=== PATIENT | male | born 1940 | race Caucasian/White ===

== ENCOUNTER 2021-12-29 17:40 | Inpatient (IN) ==
[2021-12-29 19:45] LABS: Basophils % 0.3 % (0.0-0.8); Eosinophils # 0.1 10*3/uL (0.0-0.87); Eosinophils % 1.1 % (0.00-10.9); Hematocrit 35.1 VOL% (42.0-52.0); Hemoglobin 11.6 GM/DL (14.0-18.0); Immature Granulocytes % 0.5 %; Immature Granulocytes Absolute 0.03 #; Lymphocytes # 1.3 10*3/uL (1.4-4.0); Lymphocytes % 19.1 % (21.2-54.2); Monocytes # 0.8 10*3/uL (0.11-0.8); Monocytes % 12.4 % (1.7-12.7); Neutrophils % 66.6 % (38.7-73.9); Platelet Count 215 T/CUMM (130-400); Red Blood Count 3.58 MC/CUMM (3.8-5.5); Red Cell Distribution Width 12.7 % (9.3-17.3); White Blood Count 6.5 T/CUMM (4-12)
[2021-12-29 19:58] LABS: Albumin 3.3 G/DL (3.4-5.0); Bilirubin,Total 0.6 MG/DL (0.20-1.00); Calcium 8.8 MG/DL (8.5-10.1); Osmolality,Calculated 276.5 MOS/KG (273-304); Potassium 3.7 MMOL/L (3.5-5.1); Total Protein 6.5 G/DL (6.4-8.2)
[2021-12-29 20:24] LABS: Glucose,Urine (UA) Negative (Negative); Ketones,Urine Negative (Negative); Nitrite,Urine Negative (Negative); Protein,Urine Negative (Negative); Urine Appearance Clear (Clear); Urine Color Yellow (Yellow); Urine Specific Gravity 1.015 (1.001-1.035); Urine pH 8.5 (4.5-8.0)
[2021-12-29 20:25] LABS: Bilirubin,Urine Negative (Negative); Blood, Urine Trace mg/dL (Negative); Urine Urobilinogen 0.2 eU/dL (<2.0)
[2021-12-29 20:29] LABS: Mucus,Urine Occasional /LPF (Occasional)
[2021-12-29] MEDS ORDERED: MORPHINE 2 MG/1 ML SYRINGE IV STA (21:03)
[2021-12-29] MEDS ORDERED: ONDANSETRON 4 MG/2 ML VIAL IV STA (21:03)
[2021-12-29] MEDS ORDERED: DEXTROSE 50% 25 GM/50 ML VIAL IV PRN (21:40)
[2021-12-29] MEDS ORDERED: GLUCAGON 1 MG VIAL IM PRN (21:40)
[2021-12-29] MEDS ORDERED: DEXTROSE 10% 250 ML BAG IV PRN (22:00)
[2021-12-30] MEDS: MORPHINE 2 MG/1 ML SYRINGE IV PRN ×2 (06:22→21:30)
[2021-12-30 07:52] LABS: Basophils % 0.3 % (0.0-0.8); Eosinophils # 0.2 10*3/uL (0.0-0.87); Eosinophils % 3.3 % (0.00-10.9); Hematocrit 34.4 VOL% (42.0-52.0); Hemoglobin 11.4 GM/DL (14.0-18.0); Immature Granulocytes % 0.3 %; Immature Granulocytes Absolute 0.02 #; Lymphocytes # 1.7 10*3/uL (1.4-4.0); Lymphocytes % 29.6 % (21.2-54.2); Mean Corpuscular HGB Conc 33.1 GM/DL (32-36); Mean Corpuscular Volume 98.9 FL (87-102); Mean Platelet Volume 9.8 FL (9.6-12.0); Monocytes # 0.9 10*3/uL (0.11-0.8); Neutrophils % 51.5 % (38.7-73.9); Platelet Count 197 T/CUMM (130-400); Red Blood Count 3.48 MC/CUMM (3.8-5.5); Red Cell Distribution Width 12.9 % (9.3-17.3); White Blood Count 5.7 T/CUMM (4-12)
[2021-12-30] MEDS: INSULIN REGULAR 100 UNIT/ML SUBCUT SCH ×4 (08:08→20:42)
[2021-12-30 08:09] LABS: Albumin 3.1 G/DL (3.4-5.0); Bilirubin,Total 0.5 MG/DL (0.20-1.00); Calcium 8.6 MG/DL (8.5-10.1); Osmolality,Calculated 268.1 MOS/KG (273-304); Potassium 3.5 MMOL/L (3.5-5.1); Total Protein 6.3 G/DL (6.4-8.2)
[2021-12-30] MEDS: LOSARTAN 50 MG TABLET PO SCH (08:49)
[2021-12-30] MEDS: PANTOPRAZOLE 40 MG TABLET PO SCH (08:49)
[2021-12-30] MEDS: carvediloL 25 MG TABLET PO SCH ×2 (08:49→16:40)
[2021-12-31 05:01] LABS: Basophils % 0.5 % (0.0-0.8); Eosinophils # 0.3 10*3/uL (0.0-0.87); Hematocrit 32.7 VOL% (42.0-52.0); Hemoglobin 10.9 GM/DL (14.0-18.0); Immature Granulocytes % 0.5 %; Immature Granulocytes Absolute 0.03 #; Lymphocytes # 1.4 10*3/uL (1.4-4.0); Lymphocytes % 22.5 % (21.2-54.2); Mean Corpuscular HGB Conc 33.3 GM/DL (32-36); Mean Corpuscular Volume 98.5 FL (87-102); Mean Platelet Volume 9.5 FL (9.6-12.0); Monocytes # 0.8 10*3/uL (0.11-0.8); Monocytes % 12.2 % (1.7-12.7); Neutrophils % 59.3 % (38.7-73.9); Platelet Count 181 T/CUMM (130-400); Red Blood Count 3.32 MC/CUMM (3.8-5.5); Red Cell Distribution Width 12.8 % (9.3-17.3); White Blood Count 6.2 T/CUMM (4-12)
[2021-12-31 05:31] LABS: Risk Ratio 4.31; VLDL Cholesterol 38.2 MG/DL
[2021-12-31 07:07] LABS: Calcium 8.3 MG/DL (8.5-10.1); Osmolality,Calculated 275.7 MOS/KG (273-304); Potassium 3.5 MMOL/L (3.5-5.1)
[2021-12-31] MEDS: INSULIN REGULAR 100 UNIT/ML SUBCUT SCH ×4 (07:48→21:26)
[2021-12-31] MEDS: LOSARTAN 50 MG TABLET PO SCH (08:45)
[2021-12-31] MEDS: PANTOPRAZOLE 40 MG TABLET PO SCH (08:45)
[2021-12-31] MEDS: carvediloL 25 MG TABLET PO SCH ×2 (08:45→16:11)
[2021-12-31] MEDS: EZETIMIBE 10 MG TABLET PO SCH (08:45)
[2022-01-01 06:19] LABS: Basophils % 0.5 % (0.0-0.8); Eosinophils # 0.3 10*3/uL (0.0-0.87); Eosinophils % 5.3 % (0.00-10.9); Hematocrit 34.2 VOL% (42.0-52.0); Hemoglobin 11.3 GM/DL (14.0-18.0); Immature Granulocytes % 0.9 %; Immature Granulocytes Absolute 0.06 #; Lymphocytes # 1.4 10*3/uL (1.4-4.0); Lymphocytes % 22.3 % (21.2-54.2); Mean Platelet Volume 10.2 FL (9.6-12.0); Monocytes # 0.8 10*3/uL (0.11-0.8); Monocytes % 11.8 % (1.7-12.7); Neutrophils % 59.2 % (38.7-73.9); Platelet Count 218 T/CUMM (130-400); Red Blood Count 3.49 MC/CUMM (3.8-5.5); Red Cell Distribution Width 12.8 % (9.3-17.3); White Blood Count 6.5 T/CUMM (4-12)
[2022-01-01 06:37] LABS: Calcium 8.3 MG/DL (8.5-10.1); Osmolality,Calculated 275.7 MOS/KG (273-304); Potassium 3.8 MMOL/L (3.5-5.1)
[2022-01-01] MEDS: INSULIN REGULAR 100 UNIT/ML SUBCUT SCH ×4 (08:42→21:44)
[2022-01-01] MEDS: carvediloL 25 MG TABLET PO SCH ×2 (10:10→17:54)
[2022-01-01] MEDS: PANTOPRAZOLE 40 MG TABLET PO SCH (10:10)
[2022-01-01] MEDS: EZETIMIBE 10 MG TABLET PO SCH (10:10)
[2022-01-01] MEDS: LOSARTAN 50 MG TABLET PO SCH (10:10)
[2022-01-02 05:43] LABS: Basophils % 0.4 % (0.0-0.8); Eosinophils # 0.3 10*3/uL (0.0-0.87); Eosinophils % 3.6 % (0.00-10.9); Hematocrit 35.2 VOL% (42.0-52.0); Hemoglobin 11.7 GM/DL (14.0-18.0); Immature Granulocytes % 0.8 %; Immature Granulocytes Absolute 0.06 #; Lymphocytes # 1.3 10*3/uL (1.4-4.0); Lymphocytes % 16.6 % (21.2-54.2); Mean Corpuscular HGB Conc 33.2 GM/DL (32-36); Mean Corpuscular Volume 98.6 FL (87-102); Mean Platelet Volume 9.6 FL (9.6-12.0); Monocytes # 0.8 10*3/uL (0.11-0.8); Monocytes % 10.9 % (1.7-12.7); Neutrophils % 67.7 % (38.7-73.9); Platelet Count 232 T/CUMM (130-400); Red Blood Count 3.57 MC/CUMM (3.8-5.5); Red Cell Distribution Width 12.9 % (9.3-17.3); White Blood Count 7.5 T/CUMM (4-12)
[2022-01-02 05:59] LABS: Calcium 8.6 MG/DL (8.5-10.1)
[2022-01-02] MEDS ORDERED: MAGNESIUM HYDROXIDE SUSP 30 ML UDCUP PO ONE (07:50)
[2022-01-02] MEDS: MORPHINE 2 MG/1 ML SYRINGE IV PRN ×2 (10:43→21:50)
[2022-01-02] MEDS: LOSARTAN 50 MG TABLET PO SCH (10:43)
[2022-01-02] MEDS: carvediloL 25 MG TABLET PO SCH ×2 (10:43→17:38)
[2022-01-02] MEDS: PANTOPRAZOLE 40 MG TABLET PO SCH (10:43)
[2022-01-02] MEDS: EZETIMIBE 10 MG TABLET PO SCH (10:43)
[2022-01-02] MEDS: DOCUSATE SODIUM 100 MG CAPSULE PO SCH ×2 (10:43→21:47)
[2022-01-02] MEDS: INSULIN REGULAR 100 UNIT/ML SUBCUT SCH ×3 (15:23→20:44)
[2022-01-03] MEDS: MORPHINE 2 MG/1 ML SYRINGE IV PRN (02:02)
[2022-01-03] MEDS: ONDANSETRON 4 MG/2 ML VIAL IV PRN ×2 (05:45→15:31)
[2022-01-03 05:49] LABS: Basophils % 0.4 % (0.0-0.8); Eosinophils # 0.2 10*3/uL (0.0-0.87); Eosinophils % 4.4 % (0.00-10.9); Hematocrit 33.1 VOL% (42.0-52.0); Immature Granulocytes % 0.8 %; Immature Granulocytes Absolute 0.04 #; Lymphocytes % 19.9 % (21.2-54.2); Mean Corpuscular HGB Conc 33.2 GM/DL (32-36); Mean Corpuscular Volume 97.9 FL (87-102); Mean Platelet Volume 9.6 FL (9.6-12.0); Monocytes # 0.8 10*3/uL (0.11-0.8); Monocytes % 16.1 % (1.7-12.7); Neutrophils % 58.4 % (38.7-73.9); Platelet Count 213 T/CUMM (130-400); Red Blood Count 3.38 MC/CUMM (3.8-5.5); Red Cell Distribution Width 12.7 % (9.3-17.3)
[2022-01-03 06:06] LABS: Calcium 8.4 MG/DL (8.5-10.1); Osmolality,Calculated 279.4 MOS/KG (273-304)
[2022-01-03] MEDS ORDERED: BISACODYL 10 MG SUPP RECTAL ONE (07:55)
[2022-01-03 09:24] LABS: Lymphocytes 18 % (20-55); Stomatocytes Slight; Total Cells Counted 100
[2022-01-03 09:25] LABS: Anisocytosis 1+; Platelet Estimate Normal; Polychromasia Slight
[2022-01-03] MEDS: PANTOPRAZOLE 40 MG TABLET PO SCH (09:39)
[2022-01-03] MEDS: DOCUSATE SODIUM 100 MG CAPSULE PO SCH ×2 (09:39→20:06)
[2022-01-03] MEDS: LOSARTAN 50 MG TABLET PO SCH (09:40)
[2022-01-03] MEDS: carvediloL 25 MG TABLET PO SCH ×2 (09:40→17:28)
[2022-01-03] MEDS: EZETIMIBE 10 MG TABLET PO SCH (09:40)
[2022-01-03] MEDS: POLYETHYLENE GLYCOL POWDER 17 GM PACK PO SCH (09:40)
[2022-01-03] MEDS: INSULIN REGULAR 100 UNIT/ML SUBCUT SCH ×4 (10:06→20:09)
[2022-01-04] MEDS: ONDANSETRON 4 MG/2 ML VIAL IV PRN (01:39)
[2022-01-04 05:38] LABS: Basophils % 0.2 % (0.0-0.8); Eosinophils # 0.2 10*3/uL (0.0-0.87); Eosinophils % 3.3 % (0.00-10.9); Hemoglobin 10.8 GM/DL (14.0-18.0); Immature Granulocytes % 1.1 %; Immature Granulocytes Absolute 0.06 #; Lymphocytes # 1.1 10*3/uL (1.4-4.0); Lymphocytes % 19.8 % (21.2-54.2); Mean Corpuscular HGB Conc 32.7 GM/DL (32-36); Mean Corpuscular Volume 99.1 FL (87-102); Mean Platelet Volume 10.1 FL (9.6-12.0); Neutrophils % 58.6 % (38.7-73.9); Platelet Count 229 T/CUMM (130-400); Red Blood Count 3.33 MC/CUMM (3.8-5.5); Red Cell Distribution Width 12.7 % (9.3-17.3); White Blood Count 5.7 T/CUMM (4-12)
[2022-01-04 05:55] LABS: Calcium 8.7 MG/DL (8.5-10.1); Osmolality,Calculated 276.5 MOS/KG (273-304); Potassium 4.8 MMOL/L (3.5-5.1)
[2022-01-04 06:09] LABS: Eosinophils 1 % (0-10); Lymphocytes 24 % (20-55); Nucleated Red Blood Cells 1 (0-5); Total Cells Counted 100
[2022-01-04 06:10] LABS: Platelet Estimate Adequate
[2022-01-04] MEDS: carvediloL 25 MG TABLET PO SCH ×2 (09:17→17:37)
[2022-01-04] MEDS: EZETIMIBE 10 MG TABLET PO SCH (09:17)
[2022-01-04] MEDS: LOSARTAN 50 MG TABLET PO SCH (09:17)
[2022-01-04] MEDS: DOCUSATE SODIUM 100 MG CAPSULE PO SCH ×2 (09:17→20:00)
[2022-01-04] MEDS: PANTOPRAZOLE 40 MG TABLET PO SCH (09:17)
[2022-01-04] MEDS: POLYETHYLENE GLYCOL POWDER 17 GM PACK PO SCH (09:18)
[2022-01-04] MEDS: INSULIN REGULAR 100 UNIT/ML SUBCUT SCH ×4 (10:16→22:11)
[2022-01-04] MEDS ORDERED: TUBERCULIN SKIN TEST 0.1 ML SYRINGE INTRADERM ONE (13:00)
[2022-01-05] MEDS: ONDANSETRON 4 MG/2 ML VIAL IV PRN ×2 (00:16→04:32)
[2022-01-05 06:32] LABS: Basophils % 0.5 % (0.0-0.8); Eosinophils # 0.2 10*3/uL (0.0-0.87); Eosinophils % 3.4 % (0.00-10.9); Hemoglobin 11.4 GM/DL (14.0-18.0); Immature Granulocytes % 0.5 %; Immature Granulocytes Absolute 0.03 #; Lymphocytes # 1.5 10*3/uL (1.4-4.0); Lymphocytes % 23.9 % (21.2-54.2); Mean Corpuscular HGB Conc 33.5 GM/DL (32-36); Mean Corpuscular Volume 98.3 FL (87-102); Mean Platelet Volume 9.7 FL (9.6-12.0); Monocytes % 16.6 % (1.7-12.7); Neutrophils % 55.1 % (38.7-73.9); Platelet Count 277 T/CUMM (130-400); Red Blood Count 3.46 MC/CUMM (3.8-5.5); Red Cell Distribution Width 12.7 % (9.3-17.3); White Blood Count 6.1 T/CUMM (4-12)
[2022-01-05 06:53] LABS: Band Neutrophils 1 % (0-10); Eosinophils 4 % (0-10); Lymphocytes 26 % (20-55); Platelet Estimate Adequate; Total Cells Counted 100
[2022-01-05 06:55] LABS: Calcium 8.5 MG/DL (8.5-10.1); Osmolality,Calculated 274.7 MOS/KG (273-304); Potassium 4.3 MMOL/L (3.5-5.1)
[2022-01-05 08:22] VITALS: BP 122/52
[2022-01-05] MEDS: POLYETHYLENE GLYCOL POWDER 17 GM PACK PO SCH (08:41)
[2022-01-05] MEDS: EZETIMIBE 10 MG TABLET PO SCH (08:42)
[2022-01-05] MEDS: PANTOPRAZOLE 40 MG TABLET PO SCH (08:42)
[2022-01-05] MEDS: LOSARTAN 50 MG TABLET PO SCH (08:42)
[2022-01-05] MEDS: DOCUSATE SODIUM 100 MG CAPSULE PO SCH (08:42)
[2022-01-05] MEDS: carvediloL 25 MG TABLET PO SCH (08:42)
[2022-01-05] MEDS: INSULIN REGULAR 100 UNIT/ML SUBCUT SCH (08:48)
== END 2022-01-05 11:20 | disposition home health service (06) | DRG 556 ==
LOC: N.EDINP 17:40 → N.ED 17:40 → N.EDINP 12-30 03:55 → N.5E 12-30 04:14
PROVIDERS: ADMIT Internal Medicine; ATTEND Internal Medicine